=== PATIENT | male | born 1935 | race Caucasian/White ===

== ENCOUNTER → 2016-08-13 | Outpatient (CLI) | payer OTHER ==
[~2016-08-13] MED LIST: ALBUAER2 INH; ASPEC325 PO; BUDE0.25 INH; CYAN100020 PO; FRRG PO; GARL400T4 PO; LISI-787 PO; NAPR1TAB22 PO; PANT40TA PO; SIMV20TA2 PO; VTMD1000 PO
--- NOTE | 2016-08-13 12:26 | DIAGNOSTIC IMAGING REPORT ---
LUMBAR SPINE 5 VIEWS HISTORY: Pain LOW BACK PAIN COMPARISON: 12/02/2013 FINDINGS: Considerable degenerative disc change throughout the entire lumbar region. This is similar compared to the prior study. Grade 2 anterolisthesis of L4 and L5 unchanged from the prior study. Mild wedge deformity of T12 unchanged to minimally increased compared to the prior exam. No new or interval finding specifically within the lumbar region. Mild stable rotation scoliosis. IMPRESSION: 1. Persistent degenerative change throughout the entire lumbar region with an unchanging grade 2 anterolisthesis of L4 on L5. 2. Slight compression deformity T12 minimally progressive from the prior exam. Electronically signed by: Mike Telles M.D. 08/13/2016 12:24 PM Dictated Date/Time: 08/13/2016 12:20 PM
== END | disposition home or self-care (01) ==
LOC: C.RADPV 11:56
PROVIDERS: ATTEND Family Medicine
DX: M47.816 Spondylosis without myelopathy or radiculopathy, lumbar region (principal)

== ENCOUNTER → 2016-12-26 | Outpatient (CLI) | payer OTHER ==
[2016-12-26 17:42] LABS: BLOOD UREA NITROGEN 23 mg/dl (7-18); BUN/CREATININE RATIO 18.8 (10-20); CALCIUM 9.7 mg/dl (8.5-10.1); CARBON DIOXIDE 29 mmol/L (21-32); CHLORIDE 106 mmol/L (98-107); GLUCOSE 90 mg/dl (70-99); POTASSIUM 4.1 mmol/L (3.5-5.1); SODIUM 141 mmol/L (136-145)
[2016-12-26 17:45] LABS: CHOLESTEROL 161 mg/dl (0-200); CHOLESTEROL/HDL RATIO 4.6; HDL CHOLESTEROL 35 mg/dl; LDL CHOLESTEROL CALCULATED 73 mg/dl; TRIGLYCERIDES 267 mg/dl (0-150); VERY LOW DENSITY LIPOPROT CALC 53 mg/dl
== END | disposition home or self-care (01) ==
LOC: C.LABPVFM 16:06
PROVIDERS: ATTEND Family Medicine
DX: I10 Essential (primary) hypertension (principal); E78.2 Mixed hyperlipidemia

== ENCOUNTER → 2017-04-29 | Outpatient (CLI) | payer OTHER ==
[2017-04-29 13:27] LABS: LYME DISEASE AB IGG NEG (NEG); LYME DISEASE AB IGM NEG (NEG)
[2017-04-29 14:08] LABS: BLOOD UREA NITROGEN 23 mg/dl (7-18); BUN/CREATININE RATIO 17.6 (10-20); CALCIUM 9.7 mg/dl (8.5-10.1); CARBON DIOXIDE 28 mmol/L (21-32); CHLORIDE 98 mmol/L (98-107); CREATININE 1.33 mg/dl (0.60-1.40); GLUCOSE 91 mg/dl (70-99); POTASSIUM 4.2 mmol/L (3.5-5.1); SODIUM 135 mmol/L (136-145); URIC ACID 6.8 mg/dl (2.6-7.2)
== END | disposition home or self-care (01) ==
LOC: C.LABPVFM 09:59
PROVIDERS: ATTEND Family Medicine
DX: M10.9 Gout, unspecified (principal)

== ENCOUNTER → 2017-05-07 | Outpatient (CLI) | payer OTHER ==
--- NOTE | 2017-05-07 11:31 | DIAGNOSTIC IMAGING REPORT ---
L FOOT MIN 3 VIEWS ROUTINE, L TOE(S) MIN 2 VIEWS HISTORY: 81 years-old Male PRONATION OF FEET acute left foot and first digit pain and swelling without reported trauma COMPARISON: None available TECHNIQUE: 3 views of the left foot and 3 views of the left great toe FINDINGS: FOOT: The bones appear mildly demineralized. No acute fracture, dislocation or opaque foreign body. There is moderate spurring of the mid foot. Vascular calcifications are noted. Dystrophic calcification of the distal Achilles tendon compatible with chronic tendinosis. Moderate marginal spurring of the tibiotalar joint. TOES: There is moderate joint space narrowing with marginal spurring involving the first metatarsophalangeal and interphalangeal joints. No acute fracture, dislocation or opaque foreign body identified. IMPRESSION: 1. No acute fracture or dislocation. 2. Moderate first MTP and interphalangeal joint degenerative changes The above report was generated using voice recognition software. It may contain grammatical, syntax or spelling errors. Electronically signed by: Sam Bran M.D. 05/07/2017 11:30 AM Dictated Date/Time: 05/07/2017 11:22 AM
== END | disposition home or self-care (01) ==
LOC: C.RADPV 10:39
PROVIDERS: ATTEND Family Medicine
DX: M21.6X2 Other acquired deformities of left foot (principal)

== ENCOUNTER 2017-06-13 14:47 | Emergency (ER) | payer OTHER ==
[~2017-06-13] VITALS: Ht 162.6 cm; Wt 79.7 kg
[2017-06-13 14:56] VITALS: TEMP 36.7; Ht 162.6 cm; Wt 79.7 kg
[2017-06-13] MEDS ORDERED: FERR325T18 PO (15:18)
[2017-06-13] MEDS ORDERED: GARL400T2 PO (15:18)
[2017-06-13] MEDS ORDERED: PLMINS25 INH (15:18)
[2017-06-13] MEDS ORDERED: XYLOCAINE 1%/SOD BICARB 20 ML VIAL INFIL ONE (15:45)
--- NOTE | 2017-06-13 16:03 | DIAGNOSTIC IMAGING REPORT ---
CT SCAN OF THE BRAIN WITHOUT IV CONTRAST CLINICAL HISTORY: Head injury. Laceration. COMPARISON STUDY: No priors. TECHNIQUE: Unenhanced axial CT scan of the brain is performed from the vertex to the skull base. A dose lowering technique was utilized adhering to the principles of ALARA. CT DOSE: 537.48 mGy.cm FINDINGS: Brain parenchyma: There are age-related involutional changes noting mild subcortical and periventricular microangiopathic change. There is no hemorrhage, mass effect, or evidence of acute territorial ischemia by CT criteria. Serra-white matter is preserved. No extra-axial fluid collection is seen. Ventricles, sulci, cisterns: Prominent secondary to involutional change. Intracranial vasculature: There is atherosclerotic calcification of the cavernous carotid and vertebral arteries. Calvarium: The skeletal structures are osteopenic. No depressed calvarial fracture is seen. Soft tissues: There is a high right frontal scalp contusion/laceration. Sinuses and mastoids: The visualized paranasal sinuses are clear. There is a small left mastoid effusion. Findings suggest previous left mastoid surgery. The right mastoid air cells are well pneumatized. Orbits: The bony orbits are grossly intact. There is evidence of previous bilateral ocular lens surgery. IMPRESSION: There is no hemorrhage, mass effect, or evidence of acute territorial ischemia by CT criteria. Electronically signed by: Dyllan Perez M.D. 06/13/2017 4:01 PM Dictated Date/Time: 06/13/2017 3:59 PM
--- NOTE | 2017-06-13 16:05 | EMERGENCY ROOM VISIT NOTE ---
ED Visit Note First contact with patient: 15:07 This Patient was discussed with the physician behavioral health assistant, Palma Hernandez PA-C. The pertinent historical and physical exam findings were confirmed. I agree with the studies ordered and with the interpretations of these studies. I agree with the disposition and care plan.
--- NOTE | 2017-06-13 16:44 | EMERGENCY ROOM VISIT NOTE ---
History First contact with patient: 15:07 Chief Complaint: LACERATION/CUT (SUT/DERMABOND) Stated Complaint: CUT IN HEAD History of Present Illness The patient is a 81 year old male who presents to the Emergency Room with complaints of a scalp laceration. The patient reports that he was trying to put a ladder up and the ladder fell and hit him on the top of the head. He denies loss of consciousness. He reports pain in the area of the laceration rated 1/10. He did not take any medication for pain. He does not take any blood thinners. He denies any numbness, weakness, blurred vision, slurred speech, nausea or vomiting. Review of Systems A 6 point review of systems was reviewed with the patient with pertinent positives and negatives as per history of present illness. All else were negative. Family History No pertinent family history Social History Smoking Status: Never Smoker Marital Status: Housing Status: lives with significant other Occupation Status: unemployed Current/Historical Medications Scheduled Cholecalciferol (Vitamin D3), 1,000 INTER.UNIT PO DAILY Cyanocobalamin (Vitamin B12), 2,000 MCG PO DAILY Ferrous Gluconate (Ferrous Gluconate), 324 MG PO BIDM Garlic (Garlic), 1 DOSE PO DAILY Lisinopril/Hctz (Zestoretic 20MG/12.5MG), 0.5 TAB PO QPM Naproxen Sodium (Aleve Arthritis), 220 MG PO DAILY Pantoprazole (Protonix), 40 MG PO DAILY Simvastatin (Zocor), 10 MG PO QPM Scheduled PRN Budesonide (Budesonide), 0.25 MG INH DAILY PRN for SOB/Wheezing Physical Exam Vital Signs Date Time Temp Pulse Resp B/P (MAP) Pulse Ox O2 Delivery O2 Flow Rate FiO2 06/13/17 17:11 174/94 06/13/17 16:46 86 18 161/104 96 Room Air 06/13/17 14:56 36.7 104 18 155/82 93 Room Air Physical Exam VITALS: Vitals are noted on the nurse's note and reviewed by myself. Vital signs stable. GENERAL: This is an 81-year-old male, in no acute distress, nondiaphoretic, well -developed well-nourished. SKIN: There is a 5 cm laceration to the right parietal region of the scalp. No active bleeding. HEAD: Scalp laceration as described above. Otherwise, normocephalic atraumatic. EARS: External auditory canals clear, tympanic membranes pearly serra without erythema or effusion bilaterally. No hemotympanum. EYES: Pupils equal round and reactive to light and accommodation. Extraocular movements intact. NECK: Supple without nuchal rigidity. Cervical spine is nontender. HEART: Regular rate and rhythm without murmurs gallops or rubs. LUNGS: Clear to auscultation bilaterally without wheezes, rales or rhonchi. NEURO: Patient was alert and oriented to person place and time. Medical Decision & Procedures ER Provider Diagnostic Interpretation: CT SCAN OF THE BRAIN WITHOUT IV CONTRAST FINDINGS: Brain parenchyma: There are age-related involutional changes noting mild subcortical and periventricular microangiopathic change. There is no hemorrhage, mass effect, or evidence of acute territorial ischemia by CT criteria. Serra-white matter is preserved. No extra-axial fluid collection is seen. Ventricles, sulci, cisterns: Prominent secondary to involutional change. Intracranial vasculature: There is atherosclerotic calcification of the cavernous carotid and vertebral arteries. Calvarium: The skeletal structures are osteopenic. No depressed calvarial fracture is seen. Soft tissues: There is a high right frontal scalp contusion/laceration. Sinuses and mastoids: The visualized paranasal sinuses are clear. There is a small left mastoid effusion. Findings suggest previous left mastoid surgery. The right mastoid air cells are well pneumatized. Orbits: The bony orbits are grossly intact. There is evidence of previous bilateral ocular lens surgery. IMPRESSION: There is no hemorrhage, mass effect, or evidence of acute territorial ischemia by CT criteria. Procedure Verbal consent was obtained to perform the procedure. Using sterile technique the wound was cleaned with Betadine. The area was sterilely draped. 3 ml of 1 % buffered lidocaine was used to anesthetize the patient's scalp. Once the patient was numb, the wound was copiously irrigated under pressure with sterile saline. The wound was explored and there were no deep structures present. The laceration was repaired using 7 arturo with the wound edges being well approximated. The patient tolerated the procedure well. The bleeding stopped. Medical Decision Differential diagnosis includes head injury, concussion, subdural hematoma, epidural hematoma, subarachnoid hemorrhage, among others. The patient was evaluated as above. CT of the head was performed and read by radiology and was unremarkable. Scalp laceration repair was performed as noted above. Staple care instructions were discussed with the patient and his daughter. They will follow-up with the primary care provider as needed. The patient verbalized understanding of my assessment and treatment plan was discharged home in good condition. Head Trauma GCS Score: 15 Medication Reconcilliation Current Medication List: was personally reviewed by me Blood Pressure Screening Patient's blood pressure: Elevated blood pressure Blood pressure disposition: Referred to PCP Impression Primary Impression: Laceration of scalp Departure Information Dispostion Home / Self-Care Condition GOOD Referrals Uri Delarosa M.D. (PCP) Patient Instructions My [facility] Additional Instructions You have received 6 arturo on your scalp. These arturo are NOT dissolvable and WILL need to be removed by a health care provider in 8-10 days. You can return to the Emergency Department or contact your Primary Care Provider to have these arturo removed. Proper wound care is essential for adequate wound healing and infection prevention. You can shower and clean the wound with soap and water. Do scour over the wound, pat dry with a towel. Do not submerse the wound until the arturo have been removed. You can use an antibiotic ointment with a dressing over the wound for the next 3-4 days. After this time you may leave the wound dry and open to the air. If crust develops over the wound you can use a Q-tip to apply a 1:1 peroxide:water solution to clean the wound. Look for signs of infection of the wound including: increased pain, swelling, foul discharge, streaking, or increased temperature. If any of these are noticed you should return to the Emergency Department for further assessment and treatment. As with any laceration you may have received nerve damage to the surrounding tissues. This damage may or may not be permanent. For pain control, you can use the following [id number] medicines (if >12 yo): - Regular strength (325mg/tab) Tylenol (acetaminophen) 2 tabs every 4-6 hours as needed. Do not exceed 12 tablets in a 24 hour period. Avoid taking more than 4 grams (4000 mg) of Tylenol per day. This includes any other sources of acetaminophen you may take on a regular basis. - Regular strength (200 mg/tab) Advil (ibuprofen) 1-2 tabs every 4-6 hours as needed. Do not exceed a dose of 3200 mg per day. Return to the emergency department if your symptoms worsen despite treatment course outlined above. Problem Qualifiers Primary Impression: Laceration of scalp Encounter type: initial encounter Qualified Codes: S01.01XA - Laceration without foreign body of scalp, initial encounter
[2017-06-13 16:46] VITALS: PULSE 86; O2SAT 96
[2017-06-13 17:11] VITALS: BP 174/94
== END 2017-06-13 17:13 | disposition home or self-care (01) ==
LOC: C.EDB 14:49 → C.EDD 17:13
DX: S01.01XA Laceration without foreign body of scalp, initial encounter (principal); W20.8XXA Other cause of strike by thrown, projected or falling object, initial encounter; Z79.899 Other long term (current) drug therapy

== ENCOUNTER → 2018-01-09 | Outpatient (CLI) | payer OTHER ==
[~2018-01-09] MED LIST changes: -ALBUAER2 INH; -ASPEC325 PO; -BUDE0.25 INH; -FRRG PO; +GARL400T2 PO; -GARL400T4 PO; +LISI-725 PO; -LISI-787 PO; -NAPR1TAB22 PO; +NAPR1TAB9 PO; +PLMINS25 INH; +PRLSR20 PO; +RXC5 PO
[2018-01-09 13:27] LABS: BASO % 0.2 %; BASO ABS # 0.02 K/uL (0-0.2); EOS % 1.8 %; EOS ABS # 0.15 K/uL (0-0.5); HEMATOCRIT 37.2 % (42-52); HEMOGLOBIN 11.7 g/dL (14.0-18.0); IG# 0.01 K/uL (0.00-0.02); LYMPH % 22.5 %; LYMPH ABS # 1.87 K/uL (1.2-3.4); MEAN CELL VOLUME 88.4 fL (80-100); MEAN CORPUSCULAR HEMOGLOBIN 27.8 pg (25-34); MEAN CORPUSCULAR HGB CONC 31.5 g/dl (32-36); MEAN PLATELET VOLUME 10.1 fL (7.4-10.4); MONO % 6.4 %; MONO ABS # 0.53 K/uL (0.11-0.59); NEUT ABS # 5.74 K/uL (1.4-6.5); PLATELET COUNT 353 K/uL (130-400); RED CELL DISTRIBUTION WIDTH CV 16.3 % (11.5-14.5); RED CELL DISTRIBUTION WIDTH SD 52.7 fL (36.4-46.3); WHITE BLOOD COUNT 8.32 K/uL (4.8-10.8)
[2018-01-09 13:38] LABS: PTT PATIENT 32.9 SECONDS (21.0-31.0)
[2018-01-09 13:53] LABS: BLOOD UREA NITROGEN 29 mg/dl (7-18); CALCIUM 9.6 mg/dl (8.5-10.1); CARBON DIOXIDE 29 mmol/L (21-32); CREATININE 1.15 mg/dl (0.60-1.40); GLUCOSE 101 mg/dl (70-99); POTASSIUM 4.6 mmol/L (3.5-5.1); SODIUM 136 mmol/L (136-145)
== END | disposition home or self-care (01) ==
LOC: C.LABBC 09:39
PROVIDERS: ATTEND Orthopaedic Surgery Sports Medicine
DX: Z01.812 Encounter for preprocedural laboratory examination (principal)